=== PATIENT | male | born 1970 | race Caucasian/White ===

== ENCOUNTER → 2016-06-17 | Outpatient (CLI) | payer OTHER ==
[~2016-06-17] MED LIST: BACLOFEN10 MG PO; OXYCONTIN10 MG PO; PERCOCET 7.51 TABLET PO; PROZAC40 MG PO; TRAZODONE HCL50 MG PO
== END | disposition home or self-care (01) ==
LOC: EEG 07:50
DX: Z01.810 Encounter for preprocedural cardiovascular examination (principal); G25.3 Myoclonus
CPT/HCPCS: 95954

== ENCOUNTER 2017-05-27 18:01 | Emergency (ER) | payer OTHER ==
[~2017-05-27] VITALS: Ht 182.9 cm; Wt 72.7 kg
[2017-05-27 18:50] LABS: HEMATOCRIT 46.7 % (38.0-50.0); HEMOGLOBIN 17.2 G/DL (12.5-16.6); MCH 31.8 PG (29.0-34.0); MCHC 36.8 G/DL (30.0-36.0); MCV 86.3 FL (86-99); PLATELET COUNT 135 K/uL (156-360); RBC DIS.WIDTH-CV 11.9 % (11.8-14.6); RBC DIS.WIDTH-SD 37.8 % (39-53); RED BLOOD COUNT 5.41 M/uL (4.00-5.50); WHITE BLOOD COUNT 11.3 K/uL (4.1-10.2)
[2017-05-27 18:58] LABS: ALBUMIN 4.5 g/dL (3.2-4.8)
[2017-05-27 18:59] LABS: CHLORIDE 103 mEq/L (99-109); POTASSIUM 3.5 mEq/L (3.7-5.4); SODIUM 137 mEq/L (136-147)
[2017-05-27 19:01] LABS: GLUCOSE 101 mg/dL (70-99); TOTAL PROTEIN 7.3 g/dL (6.4-8.3)
[2017-05-27 19:03] LABS: TOTAL BILIRUBIN 1.2 mg/dL (0.0-1.0)
[2017-05-27 19:04] LABS: ALKALINE PHOSPHATASE 51 IU/L (3-129)
[2017-05-27 19:05] LABS: CREATININE 0.9 mg/dL (0.6-1.3); GFR ESTIMATE (CALCULATED) > 59 mL/min/ (58.99-99999)
[2017-05-27 19:06] LABS: AST (GOT) 14 IU/L (2-34); UREA NITROGEN (BUN) 10 mg/dL (9-23)
[2017-05-27 19:08] LABS: ALT (GPT) 14 IU/L (3-49)
[2017-05-27 20:11] LABS: AMYLASE 62 IU/L (1-118)
[2017-05-27 20:20] LABS: LIPASE 22 U/L (1.0-51.0)
[2017-05-27 21:16] LABS: APPEARANCE CLEAR ((CLEAR)); BILIRUBIN NEGATIVE; BLOOD SMALL; COLOR YELLOW ((YELLOW)); GLUCOSE (STRIP) NEGATIVE; KETONES 80; LEUKOCYTES NEGATIVE; NITRITE NEGATIVE; PROTEIN (STRIP) NEGATIVE; UROBILINOGEN 0.2 MG/DL (0.2-1.0)
[2017-05-27 21:23] LABS: BACTERIA NONE SEEN /HPF; EPITHELIAL CELLS NONE SEEN /HPF; MUCUS NONE SEEN /LPF; RED BLOOD CELLS 0-5 /HPF (0-5); UCUL ADDED? NO; WHITE BLOOD CELLS 0-5 /HPF (0-5)
[2017-05-27 22:34] VITALS: BP 133/65
== END 2017-05-27 22:35 | disposition home or self-care (01) ==
LOC: EME 18:01
DX: R10.9 Unspecified abdominal pain (principal); M54.9 Dorsalgia, unspecified; G89.29 Other chronic pain; E05.00 Thyrotoxicosis with diffuse goiter without thyrotoxic crisis or storm; F41.9 Anxiety disorder, unspecified; F32.9 Major depressive disorder, single episode, unspecified; Z72.0 Tobacco use
CPT/HCPCS: 74177; 80053; 81003; 82150; 83690; 85027; 99281; 99285; J2270; J7030